=== PATIENT | male | born 1995 | race Caucasian/White ===

== ENCOUNTER 2022-06-04 12:22 | Emergency (ER) | payer OTHER, SELFPAY ==
[2022-06-04 12:41] VITALS: BP 159/85; PULSE 89; RESP 16; TEMP 36.9; O2SAT 97; BMI 37.7
--- NOTE | 2022-06-04 12:46 | DI.RAD.S_ITS ---
PROCEDURE: XR ANKLE RT MIN 3V INDICATIONS: rolled at work, swelling and bruised TECHNIQUE: 3 views of the ankle were acquired. COMPARISON: [facility], , ANKLE 3 VIEWS RIGHT, 03/05/2012, 18:05. FINDINGS: Bones: Minimally displaced distal fibular fracture. Osseous remodeling of the anterior tibia near the talar joint, sequela of remote injury seen on comparison radiograph. Normal mineralization. No concerning osseous lesion. Soft tissues: No tibiotalar joint effusion. Achilles tendon appears normal. IMPRESSION: Distal nondisplaced fibular fracture. Dictated by: Arnaldo Ordoñez M.D. on 06/04/2022 at 12:11 Approved by: Arnaldo Ordoñez M.D. on 06/04/2022 at 12:14
--- NOTE | 2022-06-04 14:39 | ED_ITS ---
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 Patient has been ambulating on it but if he has significant lateral motion is quite painful. Patient has swelling and bruising particularly the lateral side of the ankle that has then tracked into the foot. Patient denies any other major injuries otherwise. Defers anything for pain. Denies any numbness or tingling. Denies any other current symptoms. Related Data Previous Rx's Medication Instructions Recorded amoxicillin 875 mg-potassium 875 mg PO BID #10 tabs 04/24/17 clavulanate 125 mg tablet (Augmentin) Review of Systems Review of Systems ROS Unobtainable: All systems reviewed & are unremarkable except as noted in HPI and below Exam Narrative Exam Narrative: GENERAL: Alert and oriented x three, male in mild distress. HEENT: Head normocephalic, atraumatic, EOMI, pupils reactive, face symmetric, moist mucous membranes NECK: Supple, full range of motion EXTREMITIES: Normal range of motion, no clubbing. Neurovascularly intact. Patient has tenderness mainly over the medial malleolus slightly over the lateral. Patient has obvious ecchymosis over the distal end of the fibula, as well as the lateral portion of the foot tracking towards the toes. Patient does have some edema laterally as well over the dorsum of the foot. Normal sensation to light touch. Patient has normal movement of all 5 toes. No other bony tenderness throughout the foot or leg. Cap refill less than 2 seconds in all 5 toes. 2+ dorsalis pedis. 2+ tibialis. NEUROLOGICAL: Cranial nerves II through XII grossly intact. Moving all extremities SKIN: Warm, dry, no petechiae, no rashes or lesions, other changes other than above. Initial Vital Signs Initial Vital Signs: Vital Signs Temperature 98.4 F 06/04/22 12:41 Pulse Rate 89 06/04/22 12:41 Respiratory Rate 16 06/04/22 12:41 Blood Pressure 159/85 H 06/04/22 12:41 Pulse Oximetry 97 06/04/22 12:41 Oxygen Delivery Method 06/04/22 12:41 Course Orders Ordered: ED Orders 06/04/22 12:46 XR ankle RT min 3V Stat Vital Signs Vital signs: Vital Signs - 8 hr 06/04/22 12:41 06/04/22 15:08 Temperature 98.4 F Pulse Rate 89 81 Respiratory Rate 16 17 Blood Pressure 159/85 H 141/70 H Pulse Oximetry 97 97 Oxygen Delivery Method Room Air Room Air MDM - Extremity Injury (Lower) Imaging Data Extremity x-ray #1: Radiologist's Impression: [address] [address] XRay Report Signed Patient: Fidel Herrera MR#: [id number] : 1995 Acct:[id number] Age/Sex: 27 / M Date of Service: 06/04/22 Loc: ED Accession Number: [id number] ?? Procedure: XR ankle RT min 3V Ordering Provider: Zahraa Pruett D.O. PROCEDURE:? XR ANKLE RT MIN 3V ? INDICATIONS:? rolled at work, swelling and bruised ? TECHNIQUE:? 3 views of the ankle were acquired.? ? COMPARISON:? [facility], , ANKLE 3 VIEWS RIGHT, 03/05/2012, 18:05. ? FINDINGS:? ? Bones:? Minimally displaced distal fibular fracture.? Osseous remodeling of the anterior tibia near the talar joint, sequela of remote injury seen on comparison radiograph.? Normal mineralization.? No concerning osseous lesion. ? Soft tissues:? No tibiotalar joint effusion.? Achilles tendon appears normal.? ? ? IMPRESSION:? Distal nondisplaced fibular fracture. ? Dictated by: Arnaldo Ordoñez M.D. on 06/04/2022 at 12:11 ? ? Approved by: Arnaldo Ordoñez M.D. on 06/04/2022 at 12:14?? [facility] Narrative Medical decision making narrative: This is a 27-year-old male with distal fibular fracture that is slightly displaced. Patient was placed in splint, crutches. Patient has been ambulating toe-touch weight-bearing and follow up with Orthopedic surgery. Discharge Plan Departure Patient Disposition: Home Clinical Impression: Closed fibular fracture Instructions: DI for Ankle Fracture Activity Restrictions/Additional Instructions: You have a distal fibular fracture. Please follow-up with orthopedic surgery next 7-10 days for recheck. Please call for an appointment on Sunday. You may toe-touch weightbear. You may take Tylenol up to a 1000 mg every 6 hours. Splint Care: Keep splint clean and dry. Elevated affected body part to decrease swelling. OK to use ice pack on the affected body part. You can take off your splint to shower Use for 15-20 minutes each time, for 5-6x per day. If you develop worsening pain, numbness, tingling, discoloration of the affected body part, loosen the splint by loosening the MAYO wrap, and either see your doctor for an urgent re-assessment, or return to the Emergency Department. Return to the Emergency Department for any new or worsening symptoms. Prescriptions: No Action amoxicillin-pot clavulanate [Augmentin] 875 MG/125 MG tablet 875 mg PO BID Qty: 10 0RF Referrals: Gaviota Pineda MD [Physician] - Zahraa Pruett DO [Emergency Provider] - Miscellaneous,MD Slime [Primary Care Provider] - Stand Alone Forms: Work Release Note Visit Report Forms: Patient Portal/API
[2022-06-04 15:08] VITALS: BP 141/70; PULSE 81; RESP 17; O2SAT 97
== END 2022-06-04 15:05 | disposition home or self-care (01) ==
PROVIDERS: Emergency Provider Emergency Medicine
DX: S82.401A Unspecified fracture of shaft of right fibula, initial encounter for closed fracture (principal); X50.1XXA Overexertion from prolonged static or awkward postures, initial encounter; Y99.0 Civilian activity done for income or pay
CPT/HCPCS: 73610; 99281; 99283